=== PATIENT | male | born 1935 | race Caucasian/White ===

== ENCOUNTER 2021-08-25 19:00 | Emergency (ER) | payer OTHER, MEDICARE ==
[2021-08-25 19:29] LABS: BASO % 1.4 % (0-2.0); EOS % 4.4 % (0-4.5); HEMATOCRIT 39.5 % (35.4-49); HEMOGLOBIN 13.4 GM/dl (11.7-16.9); LYMPH % 29.9 % (8-40); MCH 31.1 pg (25.7-33.7); MCHC 33.8 g/dl (32.0-35.9); MEAN PLT VOLUME 8.2 fl (7.5-11.1); MONO % 11.3 % (3.8-10.2); PLATELET COUNT 294 10^3/uL (134-434); RDW 13.3 % (11.9-15.9); WHITE BLOOD COUNT 5.9 K/mm3 (4.0-10.8)
[2021-08-25 19:42] VITALS: BP 152/71; PULSE 64; TEMP 97.8; BMI 21.4
[2021-08-25 19:48] LABS: ALBUMIN 3.7 g/dl (3.4-5.0); BILIRUBIN,TOTAL 0.9 mg/dl (0.2-1); CALCIUM 9.8 mg/dl (8.5-10); CREATININE 1.2 mg/dl (0.55-1.3); MAGNESIUM 2.2 mg/dL (1.8-2.4); TOT PROT 6.9 g/dl (6.4-8.2)
== END 2021-08-25 20:56 | disposition home or self-care (01) ==
LOC: FER 19:00
DX: E87.6 Hypokalemia (principal)
CPT/HCPCS: 36415; 80053; 83735; 85025; 93005; 99283-25

== ENCOUNTER 2024-04-28 00:04 | Emergency (ER) | payer OTHER, MEDICARE ==
[2024-04-28 00:11] VITALS: TEMP 97.8; BMI 22.5
[2024-04-28 01:09] LABS: HEMATOCRIT 31.5 % (35.4-49); HEMOGLOBIN 10.7 GM/dL (11.7-16.9); MCH 31.1 pg (25.7-33.7); MCHC 33.9 g/dl (32.0-35.9); MEAN CELL VOLUME 91.7 fl (80-96); MEAN PLT VOLUME 8.1 fl (7.5-11.1); PLATELET COUNT 206 10^3/uL (134-434); RBC 3.43 M/mm3 (4.00-5.60); RDW 13.5 % (11.9-15.9); WHITE BLOOD COUNT 4.6 K/mm3 (4.0-10.0)
[2024-04-28 01:25] LABS: INR 0.96 (0.83-1.09); PROTHROMBIN TIME (PATIENT) 11.1 SEC (9.7-13.0)
[2024-04-28 01:33] LABS: POTASSIUM 4.3 mmol/L (3.5-5.1)
[2024-04-28 01:36] LABS: ALBUMIN 3.3 g/dl (3.4-5.0); CALCIUM 8.5 mg/dL (8.5-10.1)
[2024-04-28 01:37] LABS: BLOOD UREA NITROGEN 34.4 mg/dL (7-18); MAGNESIUM 2.2 mg/dL (1.8-2.4)
[2024-04-28 01:39] LABS: PHOSPHOROUS 3.5 mg/dL (2.5-4.9)
[2024-04-28 01:40] LABS: CREATININE 1.6 mg/dL (0.55-1.3)
[2024-04-28 01:41] LABS: BILIRUBIN,TOTAL 0.3 mg/dL (0.2-1); TOT PROT 6.1 g/dl (6.4-8.2)
[2024-04-28] MEDS: SODIUM CHLORIDE 0.9% 500 ML INFUS.BAG IV ONE (01:51)
[2024-04-28 02:18] LABS: N-TERMINAL BNP 142.9 pg/ml (5-450)
[2024-04-28 02:31] VITALS: PULSE 68
[2024-04-28 04:03] LABS: N-TERMINAL BNP 136.9 pg/ml (5-450)
[2024-04-28 06:21] LABS: BLOOD UREA NITROGEN 33.4 mg/dL (7-18); CALCIUM 8.2 mg/dL (8.5-10.1); CREATININE 1.5 mg/dL (0.55-1.3); POTASSIUM 4.2 mmol/L (3.5-5.1)
[2024-04-28 06:32] VITALS: BP 133/74; RESP 12
== END 2024-04-28 06:55 | disposition home or self-care (01) ==
LOC: FER 00:04
DX: R06.02 Shortness of breath (principal); R55 Syncope and collapse; R11.10 Vomiting, unspecified; Z20.822 Contact with and (suspected) exposure to COVID-19
CPT/HCPCS: 0241U-QW; 36415; 71045-TC-FY; 71275-TC; 80048; 80053; 82550; 82553; 83605; 83735; 83880; 84100; 84484; 85027; 85379; 85610; 93005; 99284-25; Q9967